=== PATIENT | female | born 1985 | race African-American/Black ===

== ENCOUNTER 2017-08-23 14:08 | Emergency (ER) | payer MEDICAID | END 2017-08-23 17:32 | disposition left against medical advice (07) | LOC: ER 16:59 | DX: Z04.8 Encounter for examination and observation for other specified reasons (principal); Z53.21 Procedure and treatment not carried out due to patient leaving prior to being seen by health care provider ==

== ENCOUNTER 2018-01-05 07:16 | Emergency (ER) | payer MEDICAID ==
[~2018-01-05] VITALS: Ht 167.6 cm; Wt 73.0 kg
[2018-01-05 07:52] VITALS: BP 108/66
== END 2018-01-05 08:49 | disposition left against medical advice (07) ==
LOC: ER 07:38
DX: Z53.21 Procedure and treatment not carried out due to patient leaving prior to being seen by health care provider (principal)

== ENCOUNTER 2018-03-19 21:21 | Emergency (ER) | payer MEDICAID | END 2018-03-20 01:25 | disposition left against medical advice (07) | LOC: ER 22:32 | DX: R06.02 Shortness of breath (principal); R07.9 Chest pain, unspecified; Z53.21 Procedure and treatment not carried out due to patient leaving prior to being seen by health care provider ==

== ENCOUNTER 2018-08-18 04:21 | Emergency (ER) | payer MEDICAID ==
[~2018-08-18] VITALS: Ht 167.6 cm; Wt 72.0 kg
[2018-08-18] MEDS ORDERED: IBUPROFEN 800MG TABLET PO ONE (06:30)
[2018-08-18 07:40] VITALS: BP 110/68
== END 2018-08-18 07:46 | disposition home or self-care (01) ==
LOC: ER 04:21
DX: S05.12XA Contusion of eyeball and orbital tissues, left eye, initial encounter (principal); S50.12XA Contusion of left forearm, initial encounter; Y04.2XXA Assault by strike against or bumped into by another person, initial encounter; Y93.89 Activity, other specified; Y92.89 Other specified places as the place of occurrence of the external cause; F17.210 Nicotine dependence, cigarettes, uncomplicated
CPT/HCPCS: 73090; 99284

== ENCOUNTER 2019-11-09 15:06 | Emergency (ER) | payer MEDICAID ==
[~2019-11-09] VITALS: Ht 167.6 cm; Wt 70.0 kg
[2019-11-09] MEDS: FAMOTIDINE 20MG/2ML VIAL IV ONE (15:42)
[2019-11-09] MEDS: METHYLPREDNISOLONE SOD SUCC 125 MG/2 ML VIAL IV ONE (15:42)
[2019-11-09] MEDS: SODIUM CHLORIDE 0.9% 1,000 ML IV SCH (15:42)
[2019-11-09] MEDS: DIPHENHYDRAMINE 50MG/ML VIAL IV ONE (15:43)
[2019-11-09] MEDS: EPINEPHRINE 1:1000 1 MG/ML AMP SUBCUT ONE (15:43)
[2019-11-09 15:53] LABS: BASOPHILS % 0.4 % (0.0-2.0); EOSINOPHILS % 1.9 % (0.0-5.0); HEMATOCRIT. 36.7 % (36.0-48.0); HEMOGLOBIN. 12.2 g/dL (12.0-16.0); LYMPHOCYTES % 48.4 % (20.0-50.0); MEAN CORPUSCULAR HEMOGLOBIN 30.3 pg (28.0-32.0); MEAN PLATELET VOLUME 8.9 fl (7.4-10.4); MONOCYTES % 4.7 % (2.0-8.0); NEUTROPHILS % 44.6 % (40.0-76.0); PLATELET 191 x1000/uL (130-400); RED BLOOD CELL COUNT 4.03 mill/uL (4.2-5.4); RED CELL DISTRIBUTION WIDTH 14.6 % (11.6-14.6)
[2019-11-09 15:58] LABS: CHLORIDE 108 mEq/L (98-107)
[2019-11-09 17:20] VITALS: BP 121/57
== END 2019-11-09 18:00 | disposition left against medical advice (07) ==
LOC: ER 15:06
DX: T78.40XA Allergy, unspecified, initial encounter (principal); J45.909 Unspecified asthma, uncomplicated; Z91.018 Allergy to other foods; Z98.890 Other specified postprocedural states; X58.XXXA Exposure to other specified factors, initial encounter
CPT/HCPCS: 36415; 80053; 85025; 93005; 96372; 96374; 96375; 99284; J1200; J2930; J3490; Z7610

== ENCOUNTER 2020-12-10 09:55 | Emergency (ER) | payer MEDICAID ==
[~2020-12-10] VITALS: Ht 167.6 cm; Wt 79.0 kg
[2020-12-10] MEDS ORDERED: ACETAMINOPHEN 325MG TABLET PO STA (10:32)
[2020-12-10 11:06] LABS: BASOPHILS % 0.5 % (0.0-2.0); EOSINOPHILS % 1.5 % (0.0-5.0); HEMATOCRIT. 38.5 % (36.0-48.0); HEMOGLOBIN. 12.7 g/dL (12.0-16.0); LYMPHOCYTES % 42.6 % (20.0-50.0); MEAN CORPUSCULAR HEMOGLOBIN 30.5 pg (28.0-32.0); MEAN CORPUSCULAR VOLUME 92.6 fL (81.0-99.0); MEAN PLATELET VOLUME 8.5 fl (7.4-10.4); MONOCYTES % 5.2 % (2.0-8.0); NEUTROPHILS % 50.2 % (40.0-76.0); PLATELET 211 x1000/uL (130-400); RED BLOOD CELL COUNT 4.16 mill/uL (4.2-5.4); RED CELL DISTRIBUTION WIDTH 14.9 % (11.6-14.6)
[2020-12-10 11:12] LABS: CHLORIDE 107 mEq/L (98-107)
[2020-12-10 11:27] LABS: HCG SCREEN NEGATIVE
[2020-12-10 12:55] VITALS: BP 109/65
[2020-12-10 14:42] LABS: CLARITY URINE CLEAR (CLEAR); COLOR URINE YELLOW (YELLOW); KETONES URINE TRACE (NEGATIVE); LEUKOCYTE ESTERASE URINE NEGATIVE (NEGATIVE); NITRITE URINE NEGATIVE (NEGATIVE); OCCULT BLOOD URINE NEGATIVE (NEGATIVE); PROTEIN URINE TRACE (NEGATIVE); SPECIFIC GRAVITY URINE 1.031 (1.005-1.030); UROBILINOGEN URINE 0.2 E.U./dL (0.2-1.0)
== END 2020-12-10 12:56 | disposition home or self-care (01) ==
LOC: ER 09:55
DX: R10.32 Left lower quadrant pain (principal); J45.909 Unspecified asthma, uncomplicated; Z98.890 Other specified postprocedural states
CPT/HCPCS: 36415; 74176; 80053; 81003; 81025; 84703; 85025; 93005; 99285

== ENCOUNTER 2021-03-18 09:50 | Emergency (ER) | payer MEDICAID ==
[~2021-03-18] VITALS: Ht 167.6 cm; Wt 78.0 kg
[2021-03-18 09:58] VITALS: BP 110/68
[2021-03-18] MEDS ORDERED: ACETAMINOPHEN WITH CODEINE 300/30MG TABLET PO ONE (10:30)
[2021-03-18] MEDS ORDERED: T3 PO (11:43)
== END 2021-03-18 12:15 | disposition home or self-care (01) ==
LOC: ER 09:50
DX: S69.81XA Other specified injuries of right wrist, hand and finger(s), initial encounter (principal); J45.909 Unspecified asthma, uncomplicated; F17.210 Nicotine dependence, cigarettes, uncomplicated; Z98.890 Other specified postprocedural states; W22.01XA Walked into wall, initial encounter; Y93.89 Activity, other specified; Y92.018 Other place in single-family (private) house as the place of occurrence of the external cause
CPT/HCPCS: 29125; 73130; 81025; 99283

== ENCOUNTER 2021-04-10 12:00 | Emergency (ER) | payer MEDICAID ==
[~2021-04-10] VITALS: Ht 170.2 cm; Wt 89.0 kg
[~2021-04-10 12:00] MED LIST: T3 PO
[2021-04-10 13:42] VITALS: BP 116/71
[2021-04-10] MEDS ORDERED: ALBU6.7H9 INH (15:41)
[2021-04-10] MEDS ORDERED: TUSSL MT (15:41)
== END 2021-04-10 15:57 | disposition home or self-care (01) ==
LOC: ER 12:00
DX: J45.909 Unspecified asthma, uncomplicated (principal); F12.10 Cannabis abuse, uncomplicated; R05 Cough; Z20.822 Contact with and (suspected) exposure to COVID-19; Z98.890 Other specified postprocedural states
CPT/HCPCS: 87426; 99284

== ENCOUNTER 2021-07-12 13:12 | Inpatient (IN) | payer MEDICAID ==
[~2021-07-12] VITALS: Ht 170.2 cm; Wt 89.4 kg
[~2021-07-12 13:12] MED LIST changes: +ALBU6.7H9 INH; +TUSSL MT
[2021-07-12] MEDS ORDERED: ONDANSETRON HCL 4MG/2ML INJ IV STA (14:59)
[2021-07-12] MEDS ORDERED: MORPHINE SULFATE 4 MG/ML CPJ (NOT FOR IM USE) IV STA (14:59)
[2021-07-12] MEDS ORDERED: METHYLPREDNISOLONE SOD SUCC 125 MG/2 ML VIAL IV ONE (15:00)
[2021-07-12] MEDS ORDERED: DIPHENHYDRAMINE 50MG/ML VIAL IV ONE (15:00)
[2021-07-12] MEDS ORDERED: GLUCAGON,HUMAN RECOMBINANT 1MG/VIAL IV ONE (15:00)
[2021-07-12] MEDS ORDERED: FAMOTIDINE 20MG/2ML VIAL IV ONE (15:00)
[2021-07-12 15:28] LABS: BASOPHILS % 0.6 % (0.0-2.0); EOSINOPHILS % 0.8 % (0.0-5.0); HEMATOCRIT. 38.9 % (36.0-48.0); HEMOGLOBIN. 13.2 g/dL (12.0-16.0); LYMPHOCYTES % 40.9 % (20.0-50.0); MEAN CORPUSCULAR HEMOGLOBIN 31.6 pg (28.0-32.0); MEAN CORPUSCULAR VOLUME 93.3 fL (81.0-99.0); MONOCYTES % 6.7 % (2.0-8.0); PLATELET 224 x1000/uL (130-400); RED BLOOD CELL COUNT 4.17 mill/uL (4.2-5.4); RED CELL DISTRIBUTION WIDTH 14.4 % (11.6-14.6)
[2021-07-12 15:33] LABS: CHLORIDE 107 mEq/L (98-107)
[2021-07-12 15:48] LABS: HCG SCREEN NEGATIVE
[2021-07-12] MEDS ORDERED: ACETAMINOPHEN 325MG TABLET PO ONE (22:30)
[2021-07-13 00:30] VITALS: BP 101/62
[2021-07-13 01:00] VITALS: BP 101/62
[2021-07-13] MEDS ORDERED: LORAZEPAM 2MG/ML CPJ IM PRN (01:30)
[2021-07-13] MEDS ORDERED: DIPHENHYDRAMINE 50MG/ML VIAL IV PRN ×2 (01:30→01:45)
[2021-07-13] MEDS ORDERED: IPRATROPIUM/ALBUTEROL 0.5-3(2.5)MG/3ML NEB HHN PRN (01:30)
[2021-07-13] MEDS ORDERED: ONDANSETRON HCL 4MG/2ML INJ IV PRN (01:30)
[2021-07-13] MEDS ORDERED: LORAZEPAM 2MG/ML CPJ IV PRN (02:00)
[2021-07-13] MEDS: METHYLPREDNISOLONE SOD SUCC 40 MG/ML VIAL IV SCH ×4 (02:07→21:58)
[2021-07-13] MEDS: DEXT 5%/0.9% NACL KCL 20MEQ/L 1,000 ML IV SCH ×3 (03:38→18:05)
[2021-07-13 04:00] VITALS: BP 96/58
[2021-07-13 05:41] LABS: BASOPHILS % 0.1 % (0.0-2.0); HEMATOCRIT. 39.7 % (36.0-48.0); HEMOGLOBIN. 13.1 g/dL (12.0-16.0); LYMPHOCYTES % 11.4 % (20.0-50.0); MEAN CORPUSCULAR HEMOGLOBIN 31.4 pg (28.0-32.0); MEAN CORPUSCULAR VOLUME 95.2 fL (81.0-99.0); MEAN PLATELET VOLUME 9.4 fl (7.4-10.4); MONOCYTES % 1.2 % (2.0-8.0); NEUTROPHILS % 87.3 % (40.0-76.0); PLATELET 205 x1000/uL (130-400); RED BLOOD CELL COUNT 4.17 mill/uL (4.2-5.4); RED CELL DISTRIBUTION WIDTH 14.3 % (11.6-14.6)
[2021-07-13 05:57] LABS: CHLORIDE 107 mEq/L (98-107)
[2021-07-13 08:00] VITALS: BP 100/66
[2021-07-13] MEDS: FAMOTIDINE 20MG/2ML VIAL IV SCH ×2 (08:47→21:58)
[2021-07-13] MEDS ORDERED: PNEUMOCOCCAL 23-VAL P-SAC VAC 0.5 ML IM ONE (10:00)
[2021-07-13] MEDS: KETOROLAC 30MG/ML VIAL IV PRN ×2 (10:50→20:11)
[2021-07-13 12:00] VITALS: BP 113/69
[2021-07-13] MEDS ORDERED: LIDOCAINE HCL/PF 1% 10 MG/ML 5ML VIAL ONE (16:32)
[2021-07-13] MEDS ORDERED: MIDAZOLAM HCL 2 MG/2 ML VIAL ONE (16:32)
[2021-07-13] MEDS ORDERED: PROPOFOL 200MG/20ML VIAL IV ONE ×2 (16:32→16:40)
[2021-07-13 20:00] VITALS: BP 102/76
[2021-07-13 21:33] LABS: PROTHROMBIN TIME 11.1 sec (9.6-11.0)
[2021-07-14] VITALS: BP 110/75
[2021-07-14] MEDS: DEXT 5%/0.9% NACL KCL 20MEQ/L 1,000 ML IV SCH ×2 (03:10→11:00)
[2021-07-14 04:00] VITALS: BP 96/57
[2021-07-14] MEDS: METHYLPREDNISOLONE SOD SUCC 40 MG/ML VIAL IV SCH ×2 (05:52→11:52)
[2021-07-14 08:01] VITALS: BP 105/56
[2021-07-14] MEDS: FAMOTIDINE 20MG/2ML VIAL IV SCH (09:00)
[2021-07-14 10:44] VITALS: BP 106/56
[2021-07-14 11:38] VITALS: BP 133/75
== END 2021-07-14 14:06 | disposition home or self-care (01) | DRG 254 ==
LOC: ER 13:12 → MICUSO 18:39 → 6WST 22:28
PROVIDERS: ADMIT Internal Medicine; ATTEND Internal Medicine
PROC: 0DB78ZX Excision of Stomach, Pylorus, Via Natural or Artificial Opening Endoscopic, Diagnostic (ICD-10-PCS; principal; 2021-07-13)
PROC: 0DC18ZZ Extirpation of Matter from Upper Esophagus, Via Natural or Artificial Opening Endoscopic (ICD-10-PCS; 2021-07-13)
DX: T18.128A Food in esophagus causing other injury, initial encounter (principal); E87.6 Hypokalemia; F12.90 Cannabis use, unspecified, uncomplicated; F17.210 Nicotine dependence, cigarettes, uncomplicated; X58.XXXA Exposure to other specified factors, initial encounter; Z20.822 Contact with and (suspected) exposure to COVID-19; J45.909 Unspecified asthma, uncomplicated; K25.9 Gastric ulcer, unspecified as acute or chronic, without hemorrhage or perforation; Z79.899 Other long term (current) drug therapy; Z98.891 History of uterine scar from previous surgery; Y93.89 Activity, other specified; Y92.89 Other specified places as the place of occurrence of the external cause; Y99.8 Other external cause status; Z80.9 Family history of malignant neoplasm, unspecified
CPT/HCPCS: 36415; 70360; 71045; 80048; 80053; 84703; 85025; 87426; 88300; 88305; 88312; 88313; 92610; 93005; 99285; J1200; J1610; J1885; J2250; J2270; J2405; J2704; J2920; J2930; J3490; J7040

== ENCOUNTER 2022-02-24 08:10 | Emergency (ER) | payer MEDICAID ==
[~2022-02-24] VITALS: Ht 167.6 cm; Wt 92.0 kg
[~2022-02-24 08:10] MED LIST changes: -T3 PO
[2022-02-24 08:44] LABS: BASOPHILS % 0.2 % (0.0-2.0); EOSINOPHILS % 0.5 % (0.0-5.0); HEMATOCRIT. 36.9 % (36.0-48.0); HEMOGLOBIN. 12.4 g/dL (12.0-16.0); LYMPHOCYTES % 11.7 % (20.0-50.0); MEAN CORPUSCULAR HEMOGLOBIN 30.9 pg (28.0-32.0); MEAN CORPUSCULAR VOLUME 92.1 fL (81.0-99.0); MEAN PLATELET VOLUME 8.7 fl (7.4-10.4); MONOCYTES % 7.4 % (2.0-8.0); NEUTROPHILS % 80.2 % (40.0-76.0); PLATELET 216 x1000/uL (130-400); RED CELL DISTRIBUTION WIDTH 14.5 % (11.6-14.6)
[2022-02-24 08:45] LABS: CHLORIDE 108 mEq/L (98-107)
[2022-02-24] MEDS ORDERED: KETOROLAC 30MG/ML VIAL IV ONE (08:45)
[2022-02-24] MEDS ORDERED: DEXAMETHASONE 4MG TABLET PO ONE (08:45)
[2022-02-24 08:49] LABS: HCG SCREEN NEGATIVE
[2022-02-24] MEDS ORDERED: DEXAMETHASONE 10 MG/ML VIAL IV ONE (09:00)
[2022-02-24] MEDS ORDERED: IOHEXOL-350 100 ML BOTTLE ONE (11:00)
[2022-02-24 11:07] LABS: MONOTEST NEGATIVE (NEGATIVE)
[2022-02-24] MEDS ORDERED: AMOX-424 MT (11:30)
[2022-02-24] MEDS ORDERED: IBUP-2028 MT (11:30)
[2022-02-24] MEDS ORDERED: TOPUD PO (11:30)
[2022-02-24 12:45] VITALS: BP 118/70
== END 2022-02-24 13:18 | disposition home or self-care (01) ==
LOC: ER 08:10
DX: J03.90 Acute tonsillitis, unspecified (principal); J45.909 Unspecified asthma, uncomplicated; F12.10 Cannabis abuse, uncomplicated; Z20.822 Contact with and (suspected) exposure to COVID-19; Z98.890 Other specified postprocedural states
CPT/HCPCS: 36415; 70491; 71045; 80053; 81025; 83690; 83880; 84484; 84703; 85025; 86308; 87426; 87804; 93005; 96374; 96375; 99285; J1100; J1885; Q9967; J8540